=== PATIENT | male | born 1935 | race Caucasian/White ===

== ENCOUNTER 2016-10-24 11:57 | Emergency (ER) | payer MEDICARE, MEDICAID ==
[~2016-10-24] VITALS: Ht 180.3 cm; Wt 82.0 kg
[~2016-10-24 11:57] MED LIST: AMLO5 PO; CHOL5000 PO; JANU100T PO; LISI-360 PO; PRAV20 PO
[2016-10-24 12:03] VITALS: BP 202/98; PULSE 72; RESP 18; TEMP 97.7; O2SAT 100
[2016-10-24 12:15] VITALS: RESP 18; O2SAT 98
[2016-10-24] MEDS ORDERED: SODIUM CHLORIDE 0.9% FLUSH 5 ML FLUSH IVF PRN (12:15)
--- NOTE | 2016-10-24 12:17 | PD ---
HPI Chief Complaint: Fall Time Seen by Provider: 12:10 Travel History International Travel<30 days: No Contact w/Intl Traveler<30days: No Traveled to known affect area: No History of Present Illness HPI 81-year-old male with history of dementia and frequent falls, brought into the emergency department via ambulance status post fall which was unwitnessed at the nursing facility he resides at. Patient is a poor historian. Patient complains of headache on the right side of his head where he has a moderate sized abrasion to the right lateral forehead. There is no open laceration. There is localized swelling. Patient states some neck pain when examined. He denies any other injury at this time. Patient is allergic to ceftriaxone. PFSH Past Medical History Cancer: No Cardiovascular Problems: Yes High Cholesterol: Yes Dementia: Yes Diabetes: Yes Patient Takes Glucophage: No Diminished Hearing: No Endocrine: Yes Genitourinary: No Hypertension: Yes Musculoskeletal: No Neurologic: Yes Psychiatric: No Reproductive: No Respiratory: No Thyroid Disease: No Ulcer: Yes (many years ago - clear at this time) Past Surgical History Appendectomy: Yes (" A CHILD") Social History Alcohol Use: Yes (DAILY 6 PACK OF BEER) Tobacco Use: No Substance Use: No Allergies-Medications (Allergen,Severity, Reaction): Coded Allergies: Ceftriaxone (Verified Allergy, Mild, Rash, 12/11/15) Reported Meds & Prescriptions Reported Meds & Active Scripts Active Norvasc (Amlodipine Besylate) 5 Mg Tab 10 Mg PO DAILY 30 Days Lisinopril 10 mg (Lisinopril) 10 Mg Tab 1 Tab PO DAILY 30 Days D 5000 (Cholecalciferol) 5,000 Units Cap 5,000 Units PO DAILY 30 Days Reported Januvia (Sitagliptin Phosphate) 100 Mg Tab 100 Mg PO DAILY Pravastatin Sodium 20 Mg Tab 1 Tab PO DAILY Review of Systems ROS Limitations: Poor Historian, Other: (dementia.) Except as stated in HPI: all other systems reviewed are Neg General / Constitutional: No: Fever Eyes: No: Visual changes HENT: No: Headaches Cardiovascular: No: Chest Pain or Discomfort Respiratory: No: Shortness of Breath Gastrointestinal: No: Abdominal Pain Genitourinary: No: Dysuria Musculoskeletal: No: Pain Skin: No Rash Neurologic: No: Weakness Psychiatric: No: Depression Endocrine: No: Polydipsia Hematologic/Lymphatic: No: Easy Bruising Physical Exam Exam Limitations: Poor Historian, Other: (dementia) Narrative GENERAL: Patient is alert and in no acute distress. Patient does respond to questions appropriately, but is limited in his response. SKIN: Warm and dry. Patient has any superficial abrasion to the right lateral forehead measuring 5 x 5 cm without signs of laceration. There is ecchymosis and swelling under. HEAD: Normocephalic. No obvious bony deformity. EYES: Pupils equal and round. No scleral icterus. No injection or drainage. ENT: No nasal bleeding or discharge. Mucous membranes pink and moist. Pharynx is clear. NECK: Trachea midline. Neck has some tenderness. Cervical spine is immobilized. CARDIOVASCULAR: Regular rate and rhythm. RESPIRATORY: No accessory muscle use. Clear to auscultation. Breath sounds equal bilaterally. GASTROINTESTINAL: Abdomen soft, non-tender, nondistended. Hepatic and splenic margins not palpable. MUSCULOSKELETAL: Extremities without clubbing, cyanosis, or edema. No obvious deformities. NEUROLOGICAL: Awake and alert. No obvious cranial nerve deficits. Motor grossly within normal limits. Five out of 5 muscle strength in the arms and legs. PSYCHIATRIC: Appropriate mood and affect; insight and judgment normal. Data Data Last Documented VS Vital Signs Date Time Temp Pulse Resp B/P Pulse Ox O2 Delivery O2 Flow Rate FiO2 10/24/16 12:15 18 98 Room Air 10/24/16 12:03 97.7 72 202/98 Orders Electrocardiogram (10/24/16 12:07) Complete Blood Count With Diff (10/24/16 12:07) Comprehensive Metabolic Panel (10/24/16 12:07) Magnesium (Mg) (10/24/16 12:07) Ckmb (Isoenzyme) Profile (10/24/16 12:07) Troponin I (10/24/16 12:07) Act Partial Throm Time (Ptt) (10/24/16 12:07) Prothrombin Time / Inr (Pt) (10/24/16 12:07) Urinalysis - C+S If Indicated (10/24/16 12:07) Ct Brain W/O Iv Contrast(Rout) (10/24/16 12:07) Ct Cerv Spine W/O Contrast (10/24/16 12:07) Ecg Monitoring (10/24/16 12:07) Iv Access Insert/Monitor (10/24/16 12:07) Oximetry (10/24/16 12:07) Sodium Chloride 0.9% Flush (Ns Flush) (10/24/16 12:15) Chest, Single Ap (10/24/16 12:15) Insulin Human Regular Inj (Novolin R Inj (10/24/16 13:30) Sodium Chlorid 0.9% 500 Ml Inj (Ns 500 M (10/24/16 13:30) Labs Laboratory Tests Test 10/24/16 10/24/16 12:10 13:40 White Blood Count 7.2 TH/MM3 Red Blood Count 4.44 MIL/MM3 Hemoglobin 13.0 GM/DL Hematocrit 37.9 % Mean Corpuscular Volume 85.3 FL Mean Corpuscular Hemoglobin 29.3 PG Mean Corpuscular Hemoglobin 34.4 % Concent Red Cell Distribution Width 13.1 % Platelet Count 215 TH/MM3 Mean Platelet Volume 10.1 FL Neutrophils (%) (Auto) 60.9 % Lymphocytes (%) (Auto) 23.8 % Monocytes (%) (Auto) 9.2 % Eosinophils (%) (Auto) 5.1 % Basophils (%) (Auto) 1.0 % Neutrophils # (Auto) 4.4 TH/MM3 Lymphocytes # (Auto) 1.7 TH/MM3 Monocytes # (Auto) 0.7 TH/MM3 Eosinophils # (Auto) 0.4 TH/MM3 Basophils # (Auto) 0.1 TH/MM3 CBC Comment DIFF FINAL Differential Comment Prothrombin Time 11.8 SEC Prothromb Time International 1.1 RATIO Ratio Activated Partial 27.7 SEC Thromboplast Time Sodium Level 138 MEQ/L Potassium Level 4.1 MEQ/L Chloride Level 102 MEQ/L Carbon Dioxide Level 30.7 MEQ/L Anion Gap 5 MEQ/L Blood Urea Nitrogen 13 MG/DL Creatinine 1.57 MG/DL Estimat Glomerular Filtration 43 ML/MIN Rate Random Glucose 346 MG/DL Calcium Level 8.9 MG/DL Magnesium Level 1.8 MG/DL Total Bilirubin 0.4 MG/DL Aspartate Amino Transf 24 U/L (AST/SGOT) Alanine Aminotransferase 30 U/L (ALT/SGPT) Alkaline Phosphatase 112 U/L Total Creatine Kinase 92 U/L Troponin I 0.02 NG/ML Total Protein 7.4 GM/DL Albumin 3.5 GM/DL Urine Color LIGHT-YELLOW Urine Turbidity HAZY Urine pH 6.5 Urine Specific [place] 1.014 Urine Protein NEG mg/dL Urine Glucose (UA) 1000 mg/dL Urine Ketones NEG mg/dL Urine Occult Blood NEG Urine Nitrite NEG Urine Bilirubin NEG Urine Urobilinogen LESS THAN 2.0 MG/DL Urine Leukocyte Esterase NEG Urine RBC LESS THAN 1 /hpf Urine WBC LESS THAN 1 /hpf Urine Bacteria RARE /hpf Urine Mucus FEW /lpf Microscopic Urinalysis Comment CULT NOT INDICATED MDM Medical Decision Making Medical Screen Exam Complete: Yes Emergency Medical Condition: Yes Differential Diagnosis Unwitnessed fall. Possible stroke. Intracranial bleed. Electrolyte imbalance. History of hypoglycemia. Fracture. Narrative Course Patient is medically stable at time of exam. CT of the head and cervical spine is ordered. Labs ordered including CBC, CMP, and urinalysis. Cardiac enzymes are ordered as well. EKG and chest x-ray is ordered. EKG shows sinus bradycardia without acute findings. This was reviewed with Dr. Salas. Chest x-ray is unremarkable for acute findings per radiologist. CT is negative for acute findings per radiologist. CBC is within normal limits CT of the cervical spine is negative. CMP shows a creatinine of 1.57, GFR 43, random glucose of 346. Patient is given 500 mL normal saline bolus as well as 4 units of normal saline IV. Urinalysis is unremarkable. Patient is reassessed after the above insulin and normal saline bolus, and blood sugar is found to be 215. Patient is felt to be stable to return to the nursing facility. Wound check because of her with antibiotic ointment and ice pack. Previous meds should remain the same. Patient should be followed up by his primary care physician. Patient may return the emergency Department with any worsening symptoms as needed. Diagnosis Primary Impression: Fall Qualified Code: W19.XXXA - Fall, initial encounter Additional Impressions: Dementia Qualified Code: F03.90 - Dementia without behavioral disturbance, unspecified dementia type Gait instability Frequent falls Referrals: Primary Care Physician Patient Instructions: General Instructions Additional Instructions: EKG and chest x-ray is ordered. EKG shows sinus bradycardia without acute findings. This was reviewed with Dr. Salas. Chest x-ray is unremarkable for acute findings per radiologist. CT is negative for acute findings per radiologist. CBC is within normal limits CT of the cervical spine is negative. CMP shows a creatinine of 1.57, GFR 43, random glucose of 346. Patient is given 500 mL normal saline bolus as well as 4 units of normal saline IV. Urinalysis is unremarkable. Patient is reassessed after the above insulin and normal saline bolus, and blood sugar is found to be 215. Patient is felt to be stable to return to the nursing facility. Wound check because of her with antibiotic ointment and ice pack. Previous meds should remain the same. Patient should be followed up by his primary care physician. Patient may return the emergency Department with any worsening symptoms as needed. Med/Other Pt SpecificInfo: Prescription(s) given Disposition: 01 DISCHARGE HOME Condition: Stable Yovany Olivo Oct 24, 2016 12:17
[2016-10-24 13:05] LABS: AUTOMATED NEUTROPHIL # 4.4 TH/MM3 (1.8-7.7); BASOPHIL # 0.1 TH/MM3 (0-0.2); EOSINOPHIL # 0.4 TH/MM3 (0-0.4); EOSINOPHIL % 5.1 % (0.0-4.0); HEMATOCRIT 37.9 % (39.0-51.0); HEMO FLAGS DIFF FINAL; LYMPH % 23.8 % (9.0-44.0); LYMPHOCYTE # 1.7 TH/MM3 (1.0-4.8); MEAN CELL VOLUME 85.3 FL (80.0-100.0); MEAN CORPUSCULAR HEMOGLOBIN 29.3 PG (27.0-34.0); MEAN CORPUSCULAR HGB CONC 34.4 % (32.0-36.0); MONO % 9.2 % (0.0-8.0); NEUT % 60.9 % (16.0-70.0); PLATELET COUNT 215 TH/MM3 (150-450); RED BLOOD COUNT 4.44 MIL/MM3 (4.50-5.90); RED CELL DISTRIBUTION WIDTH 13.1 % (11.6-17.2); WHITE BLOOD COUNT 7.2 TH/MM3 (4.0-11.0)
--- NOTE | 2016-10-24 13:06 | RADRPT ---
EXAM DATE/TIME: 10/24/2016 12:27 [facility] COMPARISON: CHEST SINGLE AP, December 08, 2015, 1:55. INDICATIONS : Cough. MEDICAL HISTORY : None. SURGICAL HISTORY : None. ENCOUNTER: Initial ACUITY: 1 day PAIN SCORE: Non-responsive. LOCATION: Bilateral chest FINDINGS: A single view of the chest demonstrates the lungs to be symmetrically aerated without evidence of mas s, infiltrate or effusion. The cardiomediastinal contours are unremarkable. Osseous structures are intact. CONCLUSION: No acute disease. Dylan Vides MD FACR on October 24, 2016 at 13:05 Board Certified Radiologist. This report was verified electronically.
--- NOTE | 2016-10-24 13:07 | RADRPT ---
EXAM DATE/TIME: 10/24/2016 12:59 [facility] COMPARISON: CT BRAIN W/O CONTRAST, December 06, 2015, 23:35. INDICATIONS : Syncope. RADIATION DOSE: 34.47 CTDIvol (mGy) MEDICAL HISTORY : Dementia. Cardiovascular disease Hypertension. SURGICAL HISTORY : None. ENCOUNTER: Initial ACUITY: 1 day PAIN SCALE: 3/10 LOCATION: cranial TECHNIQUE: Multiple contiguous axial images were obtained of the head. Using automated exposure control and adj ustment of the mA and/or kV according to patient size, radiation dose was kept as low as reasonably a chievable to obtain optimal diagnostic quality images. FINDINGS: CEREBRUM: The ventricles are normal for age. No evidence of midline shift, mass lesion, hemorrhage or acute in farction. No extra-axial fluid collections are seen. POSTERIOR FOSSA: The cerebellum and brainstem are intact. The 4th ventricle is midline. The cerebellopontine angle i s unremarkable. EXTRACRANIAL: The visualized portion of the orbits is intact. SKULL: Soft tissue swelling of the right frontal bone without fracture. CONCLUSION: Soft tissue swelling right frontal bone otherwise negative. Dylan Vides MD FACR on October 24, 2016 at 13:05 Board Certified Radiologist. This report was verified electronically.
[2016-10-24 13:14] LABS: APTT (PATIENT) 27.7 SEC (24.3-30.1); INTERNATIONAL NORMALIZED RATIO 1.1 RATIO; PROTHROMBIN TIME - PATIENT 11.8 SEC (9.8-11.6)
[2016-10-24 13:20] LABS: ANION GAP 5 MEQ/L (5-15); AST (GOT) 24 U/L (15-37); BICARBONATE 30.7 MEQ/L (21.0-32.0); BLOOD UREA NITROGEN 13 MG/DL (7-18); CHLORIDE 102 MEQ/L (98-107); GLOMERULAR FILTRATION RATE 43 ML/MIN (>89); MAGNESIUM 1.8 MG/DL (1.5-2.5); POTASSIUM 4.1 MEQ/L (3.5-5.1); SODIUM (NA) 138 MEQ/L (136-145)
[2016-10-24 13:26] LABS: ALKALINE PHOSPHATASE 112 U/L (45-117); ALT (GPT) 30 U/L (12-78); TOTAL BILIRUBIN ADULT 0.4 MG/DL (0.2-1.0)
[2016-10-24 13:29] LABS: CREATINE KINASE 92 U/L (39-308)
[2016-10-24] MEDS ORDERED: INSULIN HUMAN REGULAR 1,000 UNITS/10 ML VIAL IVP ONE (13:30)
[2016-10-24] MEDS ORDERED: SODIUM CHLORID 0.9% 500 ML INJ 500 ML IV ONE (13:30)
--- NOTE | 2016-10-24 13:41 | RADRPT ---
EXAM DATE/TIME: 10/24/2016 12:59 [facility] COMPARISON: CT CERVICAL SPINE W/O CONTRAST, November 13, 2015, 19:22. INDICATIONS : Fall, neck pain. RADIATION DOSE: 19.82 CTDIvol (mGy) MEDICAL HISTORY : Dementia. Cardiovascular disease. Hypertension. SURGICAL HISTORY : None. ENCOUNTER: Initial ACUITY: 1 day PAIN SCALE: 3/10 LOCATION: Neck TECHNIQUE: Volumetric scanning of the cervical spine was performed. Multiplanar reconstructions i n the sagittal, coronal and oblique axial planes were performed. Using automated exposure control a nd adjustment of the mA and/or kV according to patient size, radiation dose was kept as low as reason ably achievable to obtain optimal diagnostic quality images. FINDINGS: Alignment is anatomic in the sagittal and coronal projection. Degenerative changes are seen at C1 and C2. C2-C3: Uncinate ridging is present without significant spinal stenosis. There is minimal bilateral neural foraminal encroachment. C3-C4: The bony spinal canal is normal in size. No evidence of disc bulge or herniation. The neura l foramina are bilaterally patent. C4-C5: Moderate uncinate ridging is present with bilateral neural foraminal encroachment worse on th e left than the right. C5-C6: Moderate uncinate ridging is present with mild bilateral neural foraminal encroachment. C6-C7: Mild uncinate ridging is present. Neural foramina are adequate. C7-T1: The bony spinal canal is normal in size. No evidence of disc bulge or herniation. The neura l foramina are bilaterally patent. CONCLUSION: Degenerative changes without fracture or significant spinal stenosis. Dylan Vides MD FACR on October 24, 2016 at 13:36 Board Certified Radiologist. This report was verified electronically.
[2016-10-24 13:55] LABS: BACTERIA, URINE RARE /hpf; BLOOD, URINE NEG (NEG); COMMENT (UR) CULT NOT INDICATED; CULTURE IF INDICATED CULT NOT INDICATED; GLUCOSE,URINE 1000 mg/dL (NEG); KETONE, URINE NEG (NEG); MUCUS URINE FEW /lpf (OCC); NITRITE,URINE NEG (NEG); PH, URINE 6.5 (5.0-8.5); URINE COLOR LIGHT-YELLOW (YELLW/STRAW)
[2016-10-24 14:30] VITALS: BP 143/78; PULSE 84; RESP 18; O2SAT 98
[2016-10-24] MEDS ORDERED: LORazepam 2 MG/ML VIAL IV PUSH ONE (16:15)
[2016-10-24] MEDS ORDERED: LORazepam 2 MG/ML VIAL IM ONE (16:30)
[2016-10-24 17:15] VITALS: BP 138/68
--- NOTE | 2016-10-24 17:36 | EKG ---
Date Performed: 10/24/2016 Time Performed: 12:48:50 PTAGE: 81 years EKG: SINUS BRADYCARDIA LEFT AXIS DEVIATION NONSPECIFIC INTRAVENTRICULAR CONDUCTION DELAY MINIMAL VOLTAGE CRITERIA FOR LVH, CONSIDER NORMAL VARIANT ABNORMAL ECG PREVIOUS TRACING : 12/06/2015 20.14 Compared to previous tracing, heart rate has slowed. DOCTOR: Jame Locke Interpretating Date/Time 10/24/2016 17:34:44
== END 2016-10-24 17:30 | disposition home or self-care (01) ==
LOC: NEPE 11:57
DX: F03.90 Unspecified dementia, unspecified severity, without behavioral disturbance, psychotic disturbance, mood disturbance, and anxiety (principal); R26.81 Unsteadiness on feet; S00.81XA Abrasion of other part of head, initial encounter; R94.31 Abnormal electrocardiogram [ECG] [EKG]; E78.00 Pure hypercholesterolemia, unspecified; E11.9 Type 2 diabetes mellitus without complications; I10 Essential (primary) hypertension; F10.10 Alcohol abuse, uncomplicated; W01.10XA Fall on same level from slipping, tripping and stumbling with subsequent striking against unspecified object, initial encounter; Z91.81 History of falling; Y92.129 Unspecified place in nursing home as the place of occurrence of the external cause
CPT/HCPCS: 70450; 71010; 72125; 80053; 81001; 82550; 83735; 84484; 85025; 85610; 85730; 93005; 96372; 96374; 99285; J1815; J2060; J7040